=== PATIENT | female | born 1960 | race Caucasian/White ===

== ENCOUNTER 2017-09-28 07:49 | Emergency (ER) | payer OTHER ==
[~2017-09-28] VITALS: Ht 162.6 cm; Wt 97.7 kg
[2017-09-28] MEDS ORDERED: NAPROXEN DR500 MG PO (08:26)
[2017-09-28 09:20] VITALS: BP 152/80
== END 2017-09-28 09:28 | disposition home or self-care (01) | DRG 392 ==
LOC: ED 07:49
DX: R10.31 Right lower quadrant pain (principal); M47.816 Spondylosis without myelopathy or radiculopathy, lumbar region

== ENCOUNTER 2019-03-17 06:34 | Inpatient (IN) | payer OTHER ==
[~2019-03-17] VITALS: Ht 162.6 cm; Wt 97.8 kg
[~2019-03-17 06:34] MED LIST: NAPROXEN DR500 MG PO
--- NOTE | 2019-03-17 06:42 | NUR ---
AMBULATED TO ROOM
--- NOTE | 2019-03-17 06:58 | NUR ---
BEDSIDE REPORT RECEIVED FROM CITLALI LONG.
[2019-03-17 07:19] LABS: HEMOGLOBIN 14.2 g/dl (12.0-16.0); IMMATURE GRANULOCYTES 0.3 % (0.0-5.0); MEAN CELL VOLUME 91.1 fL CALC (80.0-100.0); MEAN CORPUSCULAR HGB 29.4 pG CALC (26.0-32.0); MEAN CORPUSCULAR HGB CONC 32.3 g/L CALC (32.0-36.0); NEUT# 8.28 thou/uL (2.00-7.15); RED BLOOD COUNT 4.83 mill/uL (4.20-5.60); RED CELL DISTRI WIDTH 13.3 % (11.5-15.5)
--- NOTE | 2019-03-17 07:25 | NUR ---
PATIENT REPORTS RUQ ABD PAIN STARTING LAST PM AT 2200 WITH NAUSEA AND VOMITING X2, DENIES ANY DIARRHEA. RATES PAIN 5/10 INCREASING WITH MOVEMENT. BOWEL SOUNDS ACTIVE, LAST BM LAST NIGHT. TENDERNESS NOTED TO RUQ, LUQ, AND LLQ UPON PALPATION. PATIENT MEDICATED WITH 4 MG OF ZOFRAN IV AND 30 MG OF TORADOL IV CALL LIGHT WITHIN REACH, WILL CONTINUE TO MONITOR.
[2019-03-17 07:30] LABS: URINE BILIRUBIN - DIPSTICK NEGATIVE (NEGATIVE); URINE BLOOD DIPSTICK NEGATIVE (NEGATIVE); URINE COLOR YELLOW; URINE GLUCOSE - DIPSTICK >=1000 mg/dL (NEGATIVE); URINE KETONE 15 mg/dL (NEGATIVE); URINE LEUK ESTERASE NEGATIVE (NEGATIVE); URINE NITRITE - DIPSTICK NEGATIVE (Negative); URINE PH 6.5 (4.5-8.0); URINE PROTEIN - DIPSTICK TRACE mg/dL (NEG-TRACE); URINE SPECIFIC GRAVITY 1.015; URINE UROBILINOGEN - DIPSTICK 0.2 E.U./dL (0.2)
[2019-03-17 08:01] LABS: ALBUMIN 4.3 g/dL (3.2-5.0); ALKALINE PHOSPHATASE 212 u/l (38-126); ANION GAP 17 (6-22 (CALC)); BILIRUBIN, TOTAL 0.6 mg/dL (0.0-1.4); BUN 12 mg/dL (7-17); BUN/CREATININE RATIO 19 (12-20 (CALC)); CARBON DIOXIDE 26 mmol/l (22-30); CHLORIDE 97 mmol/l (95-108); CREATININE 0.6 mg/dL (0.5-1.0); GFR > 60 ML/MIN (>=60 (CALC)); GFR FOR AFR.AMER. > 60 ML/MIN (>=60 (CALC)); LIPASE 32 u/l (23-300); POTASSIUM 4.1 mmol/l (3.5-5.1); SGOT/AST 34 u/l (14-36); SODIUM 136 mmol/l (137-146); TOTAL PROTEIN 8.4 g/dL (6.3-8.2)
--- NOTE | 2019-03-17 08:38 | NUR ---
PATIENT RETURNS FROM CT IN STABLE CONDITION. WILL CONTINUE TO MONITOR.
--- NOTE | 2019-03-17 09:29 | NUR ---
ACCUCHECK 280, PATIENT DENIES ANY HISTORY OF DIABETES ONLY REPORTS FAMILY HISTORY. DR.PITA GARNER.
--- NOTE | 2019-03-17 09:33 | NUR ---
AT BEDSIDE TO DISCUSS RESULTS AND PLAN OF CARE.
--- NOTE | 2019-03-17 10:19 | NUR ---
ATTEMPT MADE TO CALL REPORT, SPOKE TO JOVANI. NURSE NOT AVAILABLE.
--- NOTE | 2019-03-17 10:30 | NUR ---
SECOND ATTEMPT MADE TO CALL REPORT, SPOKE TO SHANIA. WILL HAVE NURSE CALL FOR REPORT.
--- NOTE | 2019-03-17 10:36 | NUR ---
REPORT CALLED TO CITLALI RUEDA.
--- NOTE | 2019-03-17 10:50 | NUR ---
PATIENT TRANSPORTED TO [facility] VIA STRETCHER. NURSE INFORMED OF PATIENT ARRIVAL TO ROOM. CARE RELINQUISHED.
[2019-03-17 11:07] VITALS: BP 128/79
--- NOTE | 2019-03-17 13:07 | NUR ---
PT ARRIVED ON UNIT VIA STRETCHER BY ED STAFF @ 1050, ALERT AND ORIENTED X 3, ORIENTED TO ROOM AND CALL BRUNER. C/O ABD DISCOMFORT AND BLOATING BUT STATES SHE HAD 2 NORMAL SOFT BM'S DURING THE NIGHT. SETTLED IN BED, WILL CONTINUE TO MONITOR.
--- NOTE | 2019-03-17 13:43 | NUR ---
PATIENT WILL NOT NEED PNEUMONIA VACCINE UNTIL SHE IS 64 ACCORDING TO CURRENT CDC GUIDELINES
[2019-03-17 16:02] VITALS: BP 118/74
[2019-03-17 16:09] LABS: MAGNESIUM 1.8 mg/dL (1.6-2.3)
[2019-03-17 19:29] VITALS: BP 133/79
--- NOTE | 2019-03-17 20:00 | NUR ---
PATIENT RESTING IN BED AT THIS TIME-STATES THAT SHE IS FEELING BETTER SINCE MEDICATED FOR PAIN AND NAUSEA A LITTLE EARLIER BY DAYSHIFT NURSE. AWAKE ALERT AND ORIENTEDX3. NPO AT THIS ITME IVF NS PATENT AND INFUSING VIA LAC SITE-SITE IS HEALTHY AT THIS ITME. SAFETY PRECAUTIONS REINFORCED. CALL LIGHT IN REACH. WILL CONT TO MONITOR.
--- NOTE | 2019-03-18 | NUR ---
PATIENT APPEARS SLEEPING AT THIS TIME-EYES CLOSED. RESP ARE EVEN AND UNLABORED. IVF NS PATENT AND INFUSING VIA LAC SITE AT 100CC/HR. SITE REMAINS HEALTHY AT THIS TIME. CALL LIGHT IN REACH. WILL CONT TO MONITOR.
[2019-03-18 04:18] VITALS: BP 158/83
--- NOTE | 2019-03-18 04:39 | NUR ---
PATIENT UP TO THE BR TO VOID 400CC OF ORANGE URINE. PATIENT BACK IN BED. REMAINS NPO AT THIS TIME. IVF NS Patent and infusing at 100cc/hr via left ac site. site remains healthy. safety precautions reinforced. call light in reach. will cont to monitor.
[2019-03-18 05:26] LABS: HEMATOCRIT 40.8 % (37.0-47.0); HEMOGLOBIN 12.8 g/dl (12.0-16.0); IMMATURE GRANULOCYTES 0.2 % (0.0-5.0); MEAN CELL VOLUME 92.5 fL CALC (80.0-100.0); MEAN CORPUSCULAR HGB CONC 31.4 g/L CALC (32.0-36.0); NEUT# 7.28 thou/uL (2.00-7.15); RED BLOOD COUNT 4.41 mill/uL (4.20-5.60); RED CELL DISTRI WIDTH 13.4 % (11.5-15.5)
[2019-03-18 05:44] LABS: ANION GAP 14 (6-22 (CALC)); BUN 13 mg/dL (7-17); BUN/CREATININE RATIO 22 (12-20 (CALC)); CARBON DIOXIDE 23 mmol/l (22-30); CHLORIDE 105 mmol/l (95-108); CREATININE 0.6 mg/dL (0.5-1.0); GFR > 60 ML/MIN (>=60 (CALC)); GFR FOR AFR.AMER. > 60 ML/MIN (>=60 (CALC)); MAGNESIUM 1.9 mg/dL (1.6-2.3); SODIUM 138 mmol/l (137-146)
[2019-03-18 07:45] VITALS: BP 132/70
--- NOTE | 2019-03-18 07:45 | NUR ---
AWAKE ON ROUNDS. ALERT AND ORIENTED X3. PATIENT WAS MEDICATED FOR PAIN BY PREVIOUS SHIFT WITH COMPLETE RELIEF OF PAIN. PATIENT STATES CURRENTLY HAVING NO PAIN. SHIFT ASSESSMENT COMPLETED. VSS. ABD SOFTLY DISTENDED, HYPOACTIVE BOWEL SOUNDS IN LOWER QUADRANTS, NO BOWEL SOUNDS HEARD IN UPPER. IV SITE IN LAC WITH NS AT 100 ML/HR, SITE BENIGN. DISCUSSED PLAN OFC CARE FOR THE DAY. PATIENT VERBALIZES UNDERSTANDING. NO NEEDS IDENTIFIED. CALL BRUNER IN REACH.
--- NOTE | 2019-03-18 10:00 | NUR ---
RESTING WITHOUT COMPLAINTS.
--- NOTE | 2019-03-18 11:00 | NUR ---
PATIENT GIVEN PRINTED EDUCATION MATERIAL TO REVIEW ON DIABETES. PATIENT ENCOURAGED TO ASK QUESTIONS AND VOICE ANY CONCERNS. SHE STATES SHE PREVIOUSLY CARED FOR HER FATHER WHO HAD DM AND SHE HAS ATTENDED CLASS ON SAME.
--- NOTE | 2019-03-18 13:00 | NUR ---
DR NGO IN TO SEE PATIENT.
--- NOTE | 2019-03-18 13:10 | NUR ---
PATIENT TO XRAY VIA FOR SMALL BOWEL SERIES.
--- NOTE | 2019-03-18 14:30 | NUR ---
RETURNED FROM XRAY VIA WC. AMBULATED TO BR, PATIENT STATES SHE VOIDED AND HAD LARGE LOOSE BM.
--- NOTE | 2019-03-18 14:40 | NUR ---
ZOFRAN 4 MG IVP FOR C/O NAUSEA.
--- NOTE | 2019-03-18 15:15 | NUR ---
STATES NAUSEA HAS IMPROVED.
[2019-03-18 15:30] VITALS: BP 135/78
--- NOTE | 2019-03-18 15:40 | NUR ---
RESTING IN BED. IV SITE REDRESSED, INFUSING WITHOUT INCIDENT.
--- NOTE | 2019-03-19 04:00 | NUR ---
PATIENT RESTING IN BED AT THIS TIME-APPEARS SLEEPING WITH EYES CLOSED. RESP ARE EVEN AND UNLABORED. IVF PATENT AND INFUSING VIA LAC SITE AT 100CC/HR. CALL LIGHT IN REACH. WILL CONT TO MONITOR.
[2019-03-19 04:10] VITALS: BP 147/78
[2019-03-19 04:41] LABS: HEMATOCRIT 39.6 % (37.0-47.0); HEMOGLOBIN 12.4 g/dl (12.0-16.0); IMMATURE GRANULOCYTES 0.3 % (0.0-5.0); MEAN CELL VOLUME 93.6 fL CALC (80.0-100.0); MEAN CORPUSCULAR HGB 29.3 pG CALC (26.0-32.0); MEAN CORPUSCULAR HGB CONC 31.3 g/L CALC (32.0-36.0); NEUT# 5.99 thou/uL (2.00-7.15); RED BLOOD COUNT 4.23 mill/uL (4.20-5.60); RED CELL DISTRI WIDTH 13.5 % (11.5-15.5)
[2019-03-19 05:26] LABS: ANION GAP 13 (6-22 (CALC)); BUN 9 mg/dL (7-17); BUN/CREATININE RATIO 15 (12-20 (CALC)); CARBON DIOXIDE 24 mmol/l (22-30); CHLORIDE 108 mmol/l (95-108); CREATININE 0.6 mg/dL (0.5-1.0); GFR > 60 ML/MIN (>=60 (CALC)); GFR FOR AFR.AMER. > 60 ML/MIN (>=60 (CALC)); MAGNESIUM 1.8 mg/dL (1.6-2.3); POTASSIUM 3.9 mmol/l (3.5-5.1); SODIUM 141 mmol/l (137-146)
[2019-03-19 08:00] VITALS: BP 145/79
--- NOTE | 2019-03-19 08:00 | NUR ---
PT IS AWAKE, ALERT, AMBULATORY IN ROOM. PT MEDICATED FOR ABDOMINAL DISCOMFORT, STATES THAT SHE ACTUALLY HURTS SOON AFTER ADMINISTRATION, BUT THAT IT IMPROVES SOON THEREAFTER. ABDOMEN IS TENDER, POSITIVE BOWEL SOUNDS.
[2019-03-19 11:04] VITALS: BP 133/81
--- NOTE | 2019-03-19 12:00 | NUR ---
PT SEEN BY DR NGO THIS MORNING, PLANS FOR EGD AND COLONOSCOPY TOMORROW. PT TO RECEIVE NULYELY FOR PREP, AWARE OF WHAT THAT MEANS. NO ACUTE DISTRESS, BUT OCCASIONAL DISCOMFORT FOR WHICH SHE IS MEDICATEDD.
[2019-03-19 16:00] VITALS: BP 153/88
--- NOTE | 2019-03-19 16:00 | NUR ---
PT CONTINUES WITH DRINKING NULYTELY, NO RESULTS YET EXCEPT FOR INCREASED RUMBLING.
--- NOTE | 2019-03-19 18:36 | NUR ---
PT HAS BEEN DRINKING NULYTELY BEST SHE CAN. SHE HAS BEEN TO BR, BUT HAS ONLY VOIDED.
[2019-03-19 19:25] VITALS: BP 164/93
--- NOTE | 2019-03-19 19:53 | NUR ---
PATIENT RESTING IN BED AT THIS TIME-AWAKE ALERT AND ORIENTEDX3. PATIENT WITH C/O OF ABD PAIN AND NAUSEA-MEDICATED WITH DILAUDID 0.5MG IVP FOR PAIN AND WITH ZOFRAN 4MG IVP FOR NAUSEA. PATIENT WITH NULYTELY PREP IN PROGRESS FOR COLOMNSCOPY TOMMORROW. PATIENT HAS FINISHED APPROX 1/2 OF PREP AND WANTS TO KNOW IF SHE CAN STOP. PATIENT IS PASSING LIGHT GREEN STOOLS WITH SEDIMENT NOTED. ENCOURAGED PATEINT TO CONT WITH NULYTELY PREP. CALL LIGHT IN REACH. WILL CONT TO MONITOR.
--- NOTE | 2019-03-19 23:00 | NUR ---
PATIENT COMPLETED NULYTELY PREP-DRANK 100%. PASSING GREEN WATERY STOOLS. PATIENT SHOWERED-ASSISTED WITH SET-UP. REINFORCED WITH PATIENT NPO AFTER MIDNIGHT STATUS. IVF NS PATENT AND NFUSING VIA LAC SITE. SITE REMAINS HEALTHY AT THIS TIME. SAFETY PRECAUTIONS REINFORCED. CALL LIGHT IN REACH. WILL CONT TO MONITOR.
[2019-03-20] VITALS (11 sets, daily range): BP systolic 128–163; BP diastolic 70–91
[2019-03-20 05:02] LABS: HEMOGLOBIN 12.7 g/dl (12.0-16.0); IMMATURE GRANULOCYTES 0.4 % (0.0-5.0); MEAN CELL VOLUME 92.2 fL CALC (80.0-100.0); MEAN CORPUSCULAR HGB 29.3 pG CALC (26.0-32.0); MEAN CORPUSCULAR HGB CONC 31.8 g/L CALC (32.0-36.0); NEUT# 6.02 thou/uL (2.00-7.15); RED BLOOD COUNT 4.34 mill/uL (4.20-5.60); RED CELL DISTRI WIDTH 13.2 % (11.5-15.5)
--- NOTE | 2019-03-20 05:06 | NUR ---
PATIENT RESTING IN BED WITH EYES CLOSED AND APPEARS SLEEPING. RESP ARE EVEN AND UNLABORED. PATIENT REMAINS NPO. IVF PATENT AND INFUSING VIA LAC SITE. CALL LIGHT IN REACH. WILL CONT TO MONITOR.
[2019-03-20 05:27] LABS: ANION GAP 14 (6-22 (CALC)); BUN 4 mg/dL (7-17); BUN/CREATININE RATIO 8 (12-20 (CALC)); CARBON DIOXIDE 23 mmol/l (22-30); CHLORIDE 105 mmol/l (95-108); CREATININE 0.5 mg/dL (0.5-1.0); GFR > 60 ML/MIN (>=60 (CALC)); GFR FOR AFR.AMER. > 60 ML/MIN (>=60 (CALC)); MAGNESIUM 1.7 mg/dL (1.6-2.3); POTASSIUM 3.9 mmol/l (3.5-5.1); SODIUM 138 mmol/l (137-146)
--- NOTE | 2019-03-20 07:50 | NUR ---
PATIENT ASELEP ON ROUNDS. AROUSES TO NAME. VSS. RESP NON-LABORED. ABD SOFTLY DISTENDED, BOWEL SOUNDS PRESENT. PATIENT STATES SHE IS STILL HAVING LIQUID STOOLS FROM NU-LYTELY PREP, CLEAR WITH DARK FLECKS. PATIENT STATES SHE IS UNCOMFORTABLE BUT DENEIS NEED FOR PAIN MEDICATION.DISCUSSED PLAN OF CARE. INFORMED PATIENT THAT SHE WILL BE LEAVING FOR OR SHORTLY.
--- NOTE | 2019-03-20 08:20 | NUR ---
PATIENT TO OR VIA STRETCHER ACCOMPANIED BY LM/CITLALI.
--- NOTE | 2019-03-20 10:25 | NUR ---
RETURNED TO ROOM VIA STRETCHER. APTIENT ASSISTED TO BR, GAIT SLOW AND STEADY. VOIDED AND PASSING FLATUS AND CLEAR LIQUID. B ACK TO BED.
--- NOTE | 2019-03-20 10:41 | NUR ---
MEDICATED FOR C/O ABD PAIN ORDERED.
--- NOTE | 2019-03-20 12:05 | NUR ---
NAPPING ON AND OFF SINCE RETURN FROM ENDO. VSS. RESP NON-LABORED.
--- NOTE | 2019-03-20 18:25 | NUR ---
SITTING UP IN CHAIR. NO COMPLAINTS VOICED AT THIS TIME.
--- NOTE | 2019-03-20 19:09 | NUR ---
REPORT RECEIVED FROM CITLALI RAMOS. PT RESTING IN BED. NO S/S OF DISTRESS AT THIS TIME. SAFETY PRECAUTIONS IN PLACE.
--- NOTE | 2019-03-20 21:45 | NUR ---
PT RESTING IN BED. RESPIRATIONS EVEN AND UNLABORED. LUNGS SOUND CLEAR. PEDAL PULSES STRONG. PT DENIES ANY PAIN OR DISCOMFORT AT THIS TIME. SAFETY PRECAUTIONS IN PLACE. WILL CONTINUE TO MONITOR.
--- NOTE | 2019-03-21 00:50 | NUR ---
PT RESTING IN BED WITH EYES CLOSED. NO S/S OF DISTRESS AT THIS TIME SAFETY PRECAUTIONS IN PLACE. WILL CONTINUE TO MONITOR.
[2019-03-21 03:40] VITALS: BP 133/78
--- NOTE | 2019-03-21 04:02 | NUR ---
PT RESTING IN BED. RESPIRATIONS EVEN AND UNLABORED ON RA. NO S/S OF DISTRESS AT THIS TIME. SAFETY PRECAUTIONS IN PLACE. WILL CONTINUE TO MONITOR.
[2019-03-21 05:33] LABS: HEMATOCRIT 42.7 % (37.0-47.0); HEMOGLOBIN 13.5 g/dl (12.0-16.0); IMMATURE GRANULOCYTES 0.2 % (0.0-5.0); MEAN CELL VOLUME 91.6 fL CALC (80.0-100.0); MEAN CORPUSCULAR HGB CONC 31.6 g/L CALC (32.0-36.0); NEUT# 5.61 thou/uL (2.00-7.15); RED BLOOD COUNT 4.66 mill/uL (4.20-5.60); RED CELL DISTRI WIDTH 13.2 % (11.5-15.5)
[2019-03-21 06:00] LABS: ANION GAP 17 (6-22 (CALC)); BUN 4 mg/dL (7-17); BUN/CREATININE RATIO 7 (12-20 (CALC)); CARBON DIOXIDE 23 mmol/l (22-30); CHLORIDE 103 mmol/l (95-108); CREATININE 0.5 mg/dL (0.5-1.0); GFR > 60 ML/MIN (>=60 (CALC)); GFR FOR AFR.AMER. > 60 ML/MIN (>=60 (CALC)); MAGNESIUM 1.7 mg/dL (1.6-2.3); POTASSIUM 3.9 mmol/l (3.5-5.1); SODIUM 140 mmol/l (137-146)
--- NOTE | 2019-03-21 07:40 | NUR ---
ASLEEP ON ROUNDS, AROUSES TO NAME. ABD SOFT WITH BOWEL SOUNDS. STATES ABD SLT TENDER TO PALPATION, DENIES NEED FOR PAIN MED AT THIS TIME. LAC IV SITE BENING, NS INFUSING AT 100 ML/HR. DISCUSSED PLAN OF CARE. CALL BRUNER IN REACH.
[2019-03-21 07:45] VITALS: BP 128/78; BP 156/90
[2019-03-21 11:20] VITALS: BP 139/90
[2019-03-21] MEDS ORDERED: DICYCLOMINE20 MG PO (11:29)
[2019-03-21] MEDS ORDERED: JANUVIA100 MG PO (11:29)
[2019-03-21] MEDS ORDERED: GLUCOPHAGE500 MG PO (11:29)
[2019-03-21] MEDS ORDERED: METRONIDAZOLE500 MG PO (11:29)
[2019-03-21] MEDS ORDERED: CIPROFLOXACIN500 M1 PO (11:29)
== END 2019-03-21 15:15 | disposition home or self-care (01) | DRG 390 ==
LOC: ED 06:34 → ED-I 09:26 → ED 09:43 → MS2 09:44
PROVIDERS: Family Medicine; Nurse Practitioner Family; ADMIT Internal Medicine; ATTEND Internal Medicine
PROC: 3E02340 Introduction of Influenza Vaccine into Muscle, Percutaneous Approach (ICD-10-PCS; 2019-03-18)
PROC: 0DB98ZX Excision of Duodenum, Via Natural or Artificial Opening Endoscopic, Diagnostic (ICD-10-PCS; principal; 2019-03-20)
PROC: 0DJD8ZZ Inspection of Lower Intestinal Tract, Via Natural or Artificial Opening Endoscopic (ICD-10-PCS; 2019-03-20)
DX: K56.7 Ileus, unspecified (principal); E11.65 Type 2 diabetes mellitus with hyperglycemia; K29.80 Duodenitis without bleeding; K44.9 Diaphragmatic hernia without obstruction or gangrene; K64.4 Residual hemorrhoidal skin tags; K64.8 Other hemorrhoids; K31.7 Polyp of stomach and duodenum; Z23 Encounter for immunization

== ENCOUNTER 2020-02-16 15:45 | Inpatient (IN) | payer OTHER ==
[~2020-02-16] VITALS: Ht 162.6 cm; Wt 89.5 kg
[~2020-02-16 15:45] MED LIST changes: +CIPROFLOXACIN500 M1 PO; +DICYCLOMINE20 MG PO; +GLUCOPHAGE500 MG PO; +JANUVIA100 MG PO; +METRONIDAZOLE500 MG PO
--- NOTE | 2020-02-16 15:45 | NUR ---
PT AMBULATED TO ROOM 8 WITH STEADY GAIT. PT REFUSED W/C
--- NOTE | 2020-02-16 16:18 | NUR ---
PT RESTING NO NEW COMPLAINTS OFFERED, CALL BRUNER WITHIN REACH.
--- NOTE | 2020-02-16 16:44 | NUR ---
IMPLANTED PORT AACCESSED USING STRILE TECHNIQUE WITH GOOD ASPIRATE NOTE, LABS DRAWNA ND BCX1 SET, PT AWARE OF PERIPHERAL DRAW NEEDED FOR THE SECOND SET. PT TOLERATED WELL, STERILE DRESSING APPPLIED AND PT TOOLERATED
--- NOTE | 2020-02-16 16:48 | NUR ---
REGISTRATION AT BEDSIDE
[2020-02-16] MEDS ORDERED: BACTRIM DS1 TAB PO (16:59)
[2020-02-16] MEDS ORDERED: METFORMIN HCL1000 MG PO (17:00)
[2020-02-16] MEDS ORDERED: LYRICA75 MG PO (17:00)
[2020-02-16] MEDS ORDERED: MULTI VIT PO (17:01)
[2020-02-16 17:06] LABS: HEMATOCRIT 36.3 % (37.0-47.0); HEMOGLOBIN 12.4 g/dl (12.0-16.0); LYMPH% 17 % (15-41); MEAN CELL VOLUME 100.8 fL CALC (80.0-100.0); MEAN CORPUSCULAR HGB 34.4 pG CALC (26.0-32.0); MEAN CORPUSCULAR HGB CONC 34.2 g/dL CAL (32.0-36.0); NEUT% 73 % (42-76); PLATELET COUNT 367 thou/uL (130-400); RED CELL DISTRI WIDTH 13.7 % (11.5-15.5)
[2020-02-16 17:07] LABS: BASO% 0 % (0-3); EOS% 0 % (0-8); MONO% 10 % (2-13)
[2020-02-16 17:24] LABS: ALBUMIN 4.4 g/dL (3.2-5.0); ALKALINE PHOSPHATASE 167 u/l (38-126); ANION GAP 13 (6-22 (CALC)); BILIRUBIN, TOTAL 1.1 mg/dL (0.0-1.4); BUN 9 mg/dL (7-17); BUN/CREATININE RATIO 14 (12-20 (CALC)); CARBON DIOXIDE 24 mmol/l (22-30); CHLORIDE 101 mmol/l (95-108); CREATININE 0.7 mg/dL (0.5-1.0); GFR > 60 ML/MIN (>=60 (CALC)); GFR FOR AFR.AMER. > 60 ML/MIN (>=60 (CALC)); POTASSIUM 3.6 mmol/l (3.5-5.1); SGOT/AST 22 u/l (14-36); SODIUM 134 mmol/l (137-146); TOTAL PROTEIN 8.5 g/dL (6.3-8.2)
--- NOTE | 2020-02-16 17:47 | NUR ---
PT MEDICATED WITH MORPHONE ORDERED WITH MODERATE RELEIF, PT CURRENTLY IN CT SCAN WILL RE EVAL UPON RETURN.
[2020-02-16 17:58] LABS: URINE BLOOD DIPSTICK SMALL (NEGATIVE); URINE COLOR YELLOW; URINE GLUCOSE - DIPSTICK NEGATIVE (NEGATIVE); URINE KETONE TRACE mg/dL (NEGATIVE); URINE LEUK ESTERASE NEGATIVE (NEGATIVE); URINE NITRITE - DIPSTICK NEGATIVE (Negative); URINE PROTEIN - DIPSTICK 30 mg/dL (NEG-TRACE); URINE SPECIFIC GRAVITY >=1.030; URINE UROBILINOGEN - DIPSTICK 0.2 E.U./dL (0.2)
[2020-02-16 17:59] LABS: URINE BILIRUBIN - DIPSTICK NEGATIVE (NEGATIVE)
[2020-02-16 18:06] LABS: URINE MUCUS FEW hpf (NONE-FEW); URINE SQUAMOUS EPITHELIAL CELL FEW EPI/hpf (0-FEW)
--- NOTE | 2020-02-16 18:10 | NUR ---
PT RESTING NO NEW COMAPLINTS OFFERED, AWARE OF AWAITING RADIOLOGY RESULTS
--- NOTE | 2020-02-16 18:45 | NUR ---
MD AT BEDSIDE AND SPOKE WITH PT REGARDING ADMISSION
--- NOTE | 2020-02-16 18:47 | NUR ---
SON CURRENTLY AT BEDSIDE
--- NOTE | 2020-02-16 18:53 | NUR ---
PT TO FLOOR VIA STRETCHER WITH MASK...PER PROTOCAL. . STOOD TO TRANSFER TO BED. UP TO BR THEN BACK TO BED.
--- NOTE | 2020-02-16 19:20 | NUR ---
PT RESTING. AWAITING ADMISSION. LEVAQUIN UP. PT C/O SOME NAUSEA...BUT JUST WANTED SOME JELLO.
--- NOTE | 2020-02-16 19:42 | NUR ---
REPORT TO CLAY/NURSE/MED-SURG.
[2020-02-16 20:00] VITALS: BP 138/69
[2020-02-16 23:00] VITALS: BP 98/59
[2020-02-17 04:11] VITALS: BP 118/62
[2020-02-17] MEDS ORDERED: ESCITALOPRAM OX10 MG PO (08:02)
[2020-02-17] MEDS ORDERED: LISINOPRIL5 MG PO (08:03)
[2020-02-17] MEDS ORDERED: PREGABALIN25 MG PO (08:04)
[2020-02-17 08:06] VITALS: BP 129/69
--- NOTE | 2020-02-17 08:06 | NUR ---
PT RESTING IN BED ALERT AND ORIENTED. RESPIRATIONS ARE EVEN AND UNLABORED. LUNGS SOUND DIMINISHED. PEDAL PULSES ARE WEAK. PT DENIES ANY PAIN OR DISCOMFORT AT THIS TIME. SAFETY PRECAUTIONS IN PLACE. WILL CONTINUE TO MONTIOR.
[2020-02-17 10:45] VITALS: BP 106/70
[2020-02-17] MEDS ORDERED: ATIVAN1 MG PO (11:20)
--- NOTE | 2020-02-17 12:03 | NUR ---
PT RESTING IN BED, NO S/S OF DISTRESS AT THIS TIME. SAFETY PRECAUTIONS IN PLACE. WILL CONTINUE TO MONTIOR.
[2020-02-17 14:45] VITALS: BP 91/63
[2020-02-17 20:15] VITALS: BP 90/63
--- NOTE | 2020-02-17 20:50 | NUR ---
PATIENT IS ALERT AND ORIENTED X 3. ABLE TO MAKE NEEDS KNOW. RESPIRATIONS EASY. SKIN WARM AND DRY. RIGHT CHEST PORT ACCESSED AND INFUSING IVF ORDERED. DENIES PAIN AT THIS TIME. BED IN LOW POSITION. CALL LIGHT WITHIN REACH.
--- NOTE | 2020-02-18 | NUR ---
PATIENT RESTING WITH EYES CLOSED. RESPIRATIONS EASY. BED IN LOW POSITOIN. CALL LIGHT WITHIN REACH.
[2020-02-18 01:14] VITALS: BP 113/63
[2020-02-18 04:00] VITALS: BP 97/48
--- NOTE | 2020-02-18 04:00 | NUR ---
RESTING WITH EYES CLOSED. RESPIRATIONS EASY. BED IN LOW POSITION. CALL LIGHT WITHIN REACH.
[2020-02-18 05:35] LABS: BASO% 0 % (0-3); EOS% 2 % (0-8); HEMATOCRIT 32.7 % (37.0-47.0); HEMOGLOBIN 10.6 g/dl (12.0-16.0); IMMATURE GRANULOCYTES 0.4 % (0.0-5.0); LYMPH% 23 % (15-41); MEAN CELL VOLUME 102.5 fL CALC (80.0-100.0); MEAN CORPUSCULAR HGB 33.2 pG CALC (26.0-32.0); MEAN CORPUSCULAR HGB CONC 32.4 g/dL CAL (32.0-36.0); MONO% 14 % (2-13); NEUT# 4.44 thou/uL (2.00-7.15); NEUT% 60 % (42-76); PLATELET COUNT 322 thou/uL (130-400); RED BLOOD COUNT 3.19 mill/uL (4.20-5.60); RED CELL DISTRI WIDTH 13.6 % (11.5-15.5)
[2020-02-18 05:50] LABS: ALBUMIN 3.6 g/dL (3.2-5.0); ALKALINE PHOSPHATASE 201 u/l (38-126); ANION GAP 8 (6-22 (CALC)); BILIRUBIN, TOTAL 0.7 mg/dL (0.0-1.4); BUN 15 mg/dL (7-17); BUN/CREATININE RATIO 21 (12-20 (CALC)); CARBON DIOXIDE 27 mmol/l (22-30); CHLORIDE 106 mmol/l (95-108); CREATININE 0.7 mg/dL (0.5-1.0); GFR > 60 ML/MIN (>=60 (CALC)); GFR FOR AFR.AMER. > 60 ML/MIN (>=60 (CALC)); POTASSIUM 3.7 mmol/l (3.5-5.1); SODIUM 137 mmol/l (137-146)
[2020-02-18 06:00] LABS: SGOT/AST 93 u/l (14-36); TOTAL PROTEIN 6.6 g/dL (6.3-8.2)
[2020-02-18 06:04] LABS: C-REACTIVE PROTEIN 15.4 mg/dL (0-0.9)
--- NOTE | 2020-02-18 06:56 | NUR ---
REPORT RECEIVED FROM CITLALI ROBERTSON. PT RESTING IN BED, NO S/S OF DISTRESS AT THIS TIME. SAFETY PRECAUTIONS IN PLACE. WILL CONTINUE TO MONITOR.
[2020-02-18 07:59] VITALS: BP 118/72
--- NOTE | 2020-02-18 07:59 | NUR ---
PT RESTING IN BED, ALERT AND ORIENTED. RESPIRATIONS ARE EVEN AND UNLABORED ON RA. LUNGS SOUND DIMINISHED. PEDAL PULSES ARE WEAK. PT REPORTS MILD DISCOMFORT IN HER BACK. TELE IN PLACE. SAFETY PRECAUTIONS IN PLACE. WILL CONTINUE TO MONITOR.
--- NOTE | 2020-02-18 09:11 | NUR ---
PT RETURNING TO BED FROM THE BED FROM THE BATHROOM, GATE STEADY. PT PROVIDED WITH CEREAL PER REQUEST. SAFETY PRECAUTIONS IN PLACE. WILL CONTINUE TO MONITOR.
[2020-02-18 11:22] VITALS: BP 132/76
--- NOTE | 2020-02-18 11:30 | NUR ---
PT RESTING IN BED, NO S/S OF DISTRESS AT THIS TIME. SAFETY PRECAUTIONS IN PLACE. WILL CONTINUE TO MONITOR.
[2020-02-18] MEDS ORDERED: Levaquin PO (12:23)
[2020-02-18] MEDS ORDERED: LYRICA75 MG PO (12:24)
--- NOTE | 2020-02-18 14:40 | NUR ---
PT RESTING IN BED. PT PROVIDED WITH DISCHARGE PACKET. PORT DEACCESSED, PT TOLERATED WELL. TELE REMOVED. PT DENIES ANY QUESTIONS OR CONCERNS AT THIS TIME. SAFETY PRECAUTIONS IN PLACE. WILL CONTINUE TO MONITOR.
--- NOTE | 2020-02-18 15:27 | NUR ---
Discharge instructions given. Patient verbalizes understanding of same. Discharged in stable condition via Wheelchair to Home with staff. All belongings sent with pt.
== END 2020-02-18 15:27 | disposition home or self-care (01) | DRG 195 ==
LOC: ED 15:45 → ED-I 16:50 → ED 18:56 → MS2 18:57 → ED 18:57 → MS2 19:51
PROVIDERS: Nurse Practitioner; ADMIT Internal Medicine; ATTEND Internal Medicine
PROC: 3E02340 Introduction of Influenza Vaccine into Muscle, Percutaneous Approach (ICD-10-PCS; principal; 2020-02-17)
PROC: 3E0234Z Introduction of Serum, Toxoid and Vaccine into Muscle, Percutaneous Approach (ICD-10-PCS; 2020-02-17)
DX: J18.9 Pneumonia, unspecified organism (principal); C50.912 Malignant neoplasm of unspecified site of left female breast; E11.9 Type 2 diabetes mellitus without complications; I10 Essential (primary) hypertension; M51.34 Other intervertebral disc degeneration, thoracic region; M25.78 Osteophyte, vertebrae; G62.0 Drug-induced polyneuropathy; T45.1X5A Adverse effect of antineoplastic and immunosuppressive drugs, initial encounter; Z23 Encounter for immunization; Z95.828 Presence of other vascular implants and grafts; Z20.828 Contact with and (suspected) exposure to other viral communicable diseases; Z92.21 Personal history of antineoplastic chemotherapy; Z79.84 Long term (current) use of oral hypoglycemic drugs
CPT/HCPCS: J1650; J1956; Q9967

== ENCOUNTER 2020-12-13 00:12 | Emergency (ER) | payer OTHER ==
[~2020-12-13 00:12] MED LIST changes: +ATIVAN1 MG PO; +BACTRIM DS1 TAB PO; +ESCITALOPRAM OX10 MG PO; +LISINOPRIL5 MG PO; +LYRICA75 MG PO; +Levaquin PO; +METFORMIN HCL1000 MG PO; +MULTI VIT PO; +PREGABALIN25 MG PO
[2020-12-13 01:17] LABS: IMMATURE GRANULOCYTES 0.4 % (0.0-5.0); MEAN CORPUSCULAR HGB 30.6 pG CALC (26.0-32.0); MEAN CORPUSCULAR HGB CONC 32.7 g/dL CAL (32.0-36.0); NEUT# 6.92 thou/uL (2.00-7.15); RED BLOOD COUNT 4.22 mill/uL (4.20-5.60); RED CELL DISTRI WIDTH 13.8 % (11.5-15.5)
[2020-12-13 01:18] LABS: HEMATOCRIT 39.4 % (37.0-47.0); HEMOGLOBIN 12.9 g/dl (12.0-16.0); MEAN CELL VOLUME 93.4 fL CALC (80.0-100.0)
[2020-12-13 01:21] LABS: ALBUMIN 4.2 g/dL (3.2-5.0); ALKALINE PHOSPHATASE 137 u/l (38-126); AMYLASE 49 u/l (30-110); ANION GAP 14 (6-22 (CALC)); BILIRUBIN, TOTAL 0.5 mg/dL (0.0-1.4); BUN 20 mg/dL (8-23); BUN/CREATININE RATIO 27 (12-20 (CALC)); CARBON DIOXIDE 25 mmol/l (22-30); CHLORIDE 103 mmol/l (95-108); CREATININE 0.7 mg/dL (0.5-1.0); GFR > 60 ML/MIN (>=60 (CALC)); GFR FOR AFR.AMER. > 60 ML/MIN (>=60 (CALC)); LIPASE 47 u/l (23-300); POTASSIUM 4.1 mmol/l (3.5-5.1); SGOT/AST 26 u/l (9-36); SODIUM 138 mmol/l (137-146)
[2020-12-13 01:24] LABS: TOTAL PROTEIN 8.3 g/dL (6.3-8.2)
[2020-12-13] MEDS ORDERED: ZOFRAN4 MG/TAB PO (02:14)
[2020-12-13 03:00] VITALS: BP 168/81
== END 2020-12-13 03:01 | disposition home or self-care (01) | DRG 390 ==
LOC: ED 00:12
PROVIDERS: Family Medicine
DX: K56.7 Ileus, unspecified (principal); K52.9 Noninfective gastroenteritis and colitis, unspecified; E11.9 Type 2 diabetes mellitus without complications; M51.36 Other intervertebral disc degeneration, lumbar region; Z79.84 Long term (current) use of oral hypoglycemic drugs

== ENCOUNTER 2020-12-15 02:47 | Emergency (ER) | payer OTHER ==
[~2020-12-15] VITALS: Ht 162.6 cm; Wt 93.0 kg
[~2020-12-15 02:47] MED LIST changes: +ZOFRAN4 MG/TAB PO
[2020-12-15 03:57] LABS: HEMATOCRIT 39.6 % (37.0-47.0); HEMOGLOBIN 12.8 g/dl (12.0-16.0); IMMATURE GRANULOCYTES 0.2 % (0.0-5.0); MEAN CELL VOLUME 92.3 fL CALC (80.0-100.0); MEAN CORPUSCULAR HGB 29.8 pG CALC (26.0-32.0); MEAN CORPUSCULAR HGB CONC 32.3 g/dL CAL (32.0-36.0); NEUT# 9.64 thou/uL (2.00-7.15); RED BLOOD COUNT 4.29 mill/uL (4.20-5.60); RED CELL DISTRI WIDTH 13.8 % (11.5-15.5)
[2020-12-15 04:14] LABS: ALBUMIN 4.2 g/dL (3.2-5.0); ALKALINE PHOSPHATASE 131 u/l (38-126); AMYLASE 36 u/l (30-110); ANION GAP 16 (6-22 (CALC)); BUN 19 mg/dL (8-23); BUN/CREATININE RATIO 25 (12-20 (CALC)); CARBON DIOXIDE 25 mmol/l (22-30); CHLORIDE 100 mmol/l (95-108); CREATININE 0.8 mg/dL (0.5-1.0); GFR > 60 ML/MIN (>=60 (CALC)); GFR FOR AFR.AMER. > 60 ML/MIN (>=60 (CALC)); LIPASE 29 u/l (23-300); POTASSIUM 3.8 mmol/l (3.5-5.1); SGOT/AST 29 u/l (9-36); SODIUM 137 mmol/l (137-146); TOTAL PROTEIN 8.4 g/dL (6.3-8.2)
[2020-12-15 04:16] LABS: BILIRUBIN, TOTAL 0.9 mg/dL (0.0-1.4); PROTHROMBIN TIME 10.9 SECONDS (9.0-12.5)
[2020-12-15 06:41] VITALS: BP 140/80
== END 2020-12-15 07:00 | disposition short-term general hospital (02) | DRG 313 ==
LOC: ED 02:47
DX: R07.9 Chest pain, unspecified (principal); R79.89 Other specified abnormal findings of blood chemistry; R10.84 Generalized abdominal pain; R11.2 Nausea with vomiting, unspecified; E11.9 Type 2 diabetes mellitus without complications; Z85.3 Personal history of malignant neoplasm of breast; Z92.21 Personal history of antineoplastic chemotherapy; Z92.3 Personal history of irradiation; Z79.84 Long term (current) use of oral hypoglycemic drugs; Z20.822 Contact with and (suspected) exposure to COVID-19
CPT/HCPCS: J1644; Q9967

== ENCOUNTER 2022-06-28 06:35 | Emergency (ER) | payer OTHER ==
[~2022-06-28] VITALS: Ht 162.6 cm; Wt 90.0 kg
[2022-06-28 07:40] LABS: BASO% 0.3 % (0-3); HEMATOCRIT 43.9 % (37.0-47.0); HEMOGLOBIN 13.9 g/dl (12.0-16.0); IMMATURE GRANULOCYTES 0.1 % (0.0-5.0); MEAN CELL VOLUME 89.4 fL CALC (80.0-100.0); MEAN CORPUSCULAR HGB 28.3 pG CALC (26.0-32.0); MEAN CORPUSCULAR HGB CONC 31.7 g/dL CAL (32.0-36.0); MONO% 6.1 % (2-13); NEUT# 9.56 thou/uL (2.00-7.15); NEUT% 77.5 % (42-76); RED BLOOD COUNT 4.91 mill/uL (4.20-5.60); RED CELL DISTRI WIDTH 14.4 % (11.5-15.5)
[2022-06-28 07:57] LABS: ALBUMIN 4.3 g/dL (3.2-5.0); ALKALINE PHOSPHATASE 152 u/l (38-126); ANION GAP 14 (6-22 (CALC)); BILIRUBIN, TOTAL 0.7 mg/dL (0.02-1.3); BUN 15 mg/dL (8-23); BUN/CREATININE RATIO 18 (12-20 (CALC)); CARBON DIOXIDE 23 mmol/l (22-30); CHLORIDE 105 mmol/l (95-108); CREATININE 0.8 mg/dL (0.5-1.0); GFR FOR AFR.AMER. > 60 ML/MIN (>=60 (CALC)); GFR OTHER RACES > 60 ML/MIN (>=60 (CALC)); POTASSIUM 4.1 mmol/l (3.5-5.1); SGOT/AST 24 u/l (9-36); SODIUM 137 mmol/l (137-146)
[2022-06-28 09:09] LABS: TSH, 3RD GENERATION 3.68 uIU/mL (0.47 - 4.68)
[2022-06-28] MEDS ORDERED: ZPAK PO (11:02)
[2022-06-28] MEDS ORDERED: ZOFRAN4 MG/TAB PO (11:02)
[2022-06-28 11:08] VITALS: BP 122/84
== END 2022-06-28 11:15 | disposition home or self-care (01) | DRG 556 ==
LOC: ED 06:35
PROVIDERS: Emergency Medicine; Family Medicine
DX: M25.552 Pain in left hip (principal); M16.12 Unilateral primary osteoarthritis, left hip; E11.9 Type 2 diabetes mellitus without complications; Z79.84 Long term (current) use of oral hypoglycemic drugs; Z85.9 Personal history of malignant neoplasm, unspecified
CPT/HCPCS: Q9967

== ENCOUNTER 2022-06-30 05:33 | Emergency (ER) | payer OTHER ==
[2022-06-30] VITALS (11 sets, daily range): BP systolic 116–138; BP diastolic 60–79
[~2022-06-30] VITALS: Ht 162.6 cm; Wt 81.0 kg
[~2022-06-30 05:33] MED LIST changes: +ZPAK PO
[2022-06-30] MEDS ORDERED: MELOXICAM7.5 MG PO (07:02)
== END 2022-06-30 09:01 | disposition home or self-care (01) | DRG 554 ==
LOC: ED 05:33
DX: M16.12 Unilateral primary osteoarthritis, left hip (principal); E11.9 Type 2 diabetes mellitus without complications; Z79.84 Long term (current) use of oral hypoglycemic drugs

== ENCOUNTER 2022-07-03 21:32 | Emergency (ER) | payer OTHER ==
[~2022-07-03] VITALS: Ht 162.6 cm; Wt 90.0 kg
[~2022-07-03 21:32] MED LIST changes: +MELOXICAM7.5 MG PO
[2022-07-04] MEDS ORDERED: VOLTAREN - GENE75 MG PO (00:31)
[2022-07-04] MEDS ORDERED: TYLENOL # 31 TA1 PO (00:31)
[2022-07-04 00:38] VITALS: BP 134/67
== END 2022-07-04 00:47 | disposition home or self-care (01) | DRG 554 ==
LOC: ED 21:32
DX: M16.12 Unilateral primary osteoarthritis, left hip (principal); E11.9 Type 2 diabetes mellitus without complications; Z79.84 Long term (current) use of oral hypoglycemic drugs